=== PATIENT | female | born 1985 | race Caucasian/White ===

== ENCOUNTER 2021-05-20 18:25 | Emergency (ER) | payer OTHER, MEDICAID, SELFPAY ==
[2021-05-20 18:34] VITALS: BMI 27.4
[2021-05-20 18:38] VITALS: BP 178/93; PULSE 111; TEMP 36.5; O2SAT 100
--- NOTE | 2021-05-20 19:03 | ED_ITS ---
HPI - General Adult <Guilherme Vail DO - Last Filed: 05/21/21 20:44> General Chief complaint: Toxicology Problem Stated complaint: crystal meth OD Time Seen by Provider: 05/20/21 18:35 Source: patient and EMS Mode of arrival: EMS History of Present Illness HPI narrative: Patient is a 35-year-old female who is brought in by EMS for evaluation of a meth overdose. It was reported that just prior to arrival the patient ingested 1.5 g of methamphetamine by mouth. Patient states that she knew exactly what the dose was because she had a scale there. She states that she has problems with a relationship with her mother. She states that her mother continuously talks down to her and tells her ?you need to go meet Diogo? because of her methamphetamine abuse. She states that she took the meth because her mother was talking down to her like this this evening. She states that it was in an effort to hurt herself because of her mother. Her mother was the one who contacted EMS. Patient states that she is feeling very anxious otherwise has no other complaints. She denies any other toxic ingestions. Denies any alcohol use. Related Data Allergies Allergy/AdvReac Type Severity Reaction Status Date / Time macadamia nut oil Allergy Verified 05/20/21 18:34 meloxicam Allergy Verified 05/20/21 18:34 Review of Systems <Guilherme Vail DO - Last Filed: 05/21/21 20:44> Constitutional Constitutional: Reports as per HPI and Reports system reviewed and no additional complaints, except as documented Cardiovascular Cardiovascular: Reports as per HPI and Reports system reviewed and no additional complaints, except as documented Respiratory Respiratory: Reports as per HPI and Reports system reviewed and no additional complaints, except as documented Gastrointestinal Gastrointestinal: Reports as per HPI and Reports system reviewed and no additional complaints, except as documented Musculoskeletal Musculoskeletal: Reports system reviewed and no additional complaints, except as documented and Reports as per HPI Neurologic Neurologic: Reports system reviewed and no additional complaints, except as documented and Reports as per HPI Psychiatric Psychiatric: Reports as per HPI Hematologic/Lymphatic On Anticoagulants: No Patient History <Guilherme Vail DO - Last Filed: 05/21/21 20:44> Medical History Methamphetamine abuse Social History Smoking Status: Current every day smoker Smoking Status: Current every day smoker Substance Use Type: methamphetamine Exam <Guilherme Vail DO - Last Filed: 05/21/21 20:44> Initial Vital Signs Initial Vital Signs: Vital Signs Temperature 97.7 F 05/20/21 18:38 Pulse Rate 111 H 05/20/21 18:38 Blood Pressure 178/93 H 05/20/21 18:38 Pulse Oximetry 100 05/20/21 18:38 Const General: cooperative, well groomed and anxious HENMT Head: normal to inspection and normocephalic Resp Effort & Inspection: normal respiratory effort Auscultation: clear to auscultation bilaterally Cardio Rate: tachycardic Rhythm: regular rhythm Skin General: no rashes or lesions noted Neuro General: patient alert, patient awake and moves all extremities Extrem General: normal to inspection and capillary refill normal Psych Appearance: disheveled Speech and Movement: speech and movement normal and not agitated Affect: anxious affect Attitude: cooperative Thought Content: suicidality Judgment: poor <Rita Patricio DO - Last Filed: 05/21/21 16:38> Initial Vital Signs Initial Vital Signs: Vital Signs Temperature 97.7 F 05/20/21 18:38 Pulse Rate 111 H 05/20/21 18:38 Blood Pressure 178/93 H 05/20/21 18:38 Pulse Oximetry 100 05/20/21 18:38 Course <Guilherme Vail DO - Last Filed: 05/21/21 20:44> Orders Ordered: ED Orders 05/21/21 09:00 Urinalysis and Microscopic Stat Urine Drug Screen, Rapid Stat 05/21/21 09:56 Test Urine Stat 05/21/21 09:57 COVID19 -Nasal swab/Pre-Proc Stat Vital Signs Vital signs: Vital Signs - 8 hr 05/21/21 12:53 Temperature 97.8 F Pulse Rate 95 H Respiratory Rate 18 Blood Pressure 155/97 H Pulse Oximetry 99 <Rita Patricio DO - Last Filed: 05/21/21 16:38> Orders Ordered: ED Orders 05/21/21 09:00 Urinalysis and Microscopic Stat Urine Drug Screen, Rapid Stat 05/21/21 09:56 Test Urine Stat 05/21/21 09:57 COVID19 -Nasal swab/Pre-Proc Stat Vital Signs Vital signs: Vital Signs - 8 hr 10/02/21 12:53 Temperature 97.8 F Pulse Rate 95 H Respiratory Rate 18 Blood Pressure 155/97 H Pulse Oximetry 99 Medical Decision Making <Guilherme Vail DO - Last Filed: 05/21/21 20:44> Lab Data Lab results reviewed: Yes I reviewed the patient's lab results. Result diagrams: 05/20/21 19:20 05/20/21 19:20 Labs: Lab Results 05/20/21 05/20/21 05/20/21 Range/Units 19:20 19:20 19:20 WBC 6.2 (4.5-11.0) X10^3/uL RBC 4.34 (4.0-5.2) X10^6/uL Hgb 12.3 (12.0-16.0) g/dL Hct 36.9 (36-46) % MCV 84.9 (80-100) fL MCH 28.3 (26-34) PG MCHC 33.3 (30-36) % RDW 14.4 (11.6-14.8) % Plt Count 279 (150-400) X10^3/uL Neut % (Auto) 51.3 (50-75) % Lymph % (Auto) 39.7 (25-40) % [place] % (Auto) 7.0 (3-14) % Eos % (Auto) 1.0 L (2-4) % Baso % (Auto) 1.0 (0-2) % Neut # (Auto) 3200 (5532-2276) /uL Lymph # (Auto) 2500 (6255-7259) /uL [place] # (Auto) 400 (0-900) /uL Eos # (Auto) 100 (0-450) /uL Baso # (Auto) 100 (0-100) /uL Sodium 140 (137-145) mmol/L Potassium 4.0 (3.4-5.1) mmol/L Chloride 105 (98-107) mmol/L Carbon Dioxide 26 (22-32) mmol/L BUN 13 (7-17) mg/dL Creatinine 0.59 (0.52-1.04) mg/dL Estimated GFR > 60.0 (>60) mL/min BUN/Creatinine Ratio 22.0 (6-22) Glucose 97 (70-100) mg/dL Calcium 9.5 (8.4-10.2) mg/dL Total Bilirubin 0.4 (0.2-1.3) mg/dL AST 22 (14-36) IU/L ALT 15 (<35) IU/L Alkaline Phosphatase 59 (38-126) U/L Total Protein 7.9 (6.3-8.2) g/dL Albumin 4.8 (3.5-5.0) g/dL Globulin 3.1 (1.7-4.1) g/dL Albumin/Globulin Ratio 1.5 (1.0-2.8) Lipase 90 (23-300) U/L TSH 1.87 (0.47-4.68) uIU/mL Serum , Qual (Negative) Urine Color Urine Appearance Urine pH (4.5-8.0) Ur Specific [place] (1.000-1.035) Urine Protein (Negative) Urine Glucose (UA) (Negative) g/dL Urine Ketones (NEGATIVE) Urine Occult Blood (Negative) Urine Nitrate (Negative) Urine Bilirubin (NEGATIVE) Urine Urobilinogen (0.2) E.U./dL Ur Leukocyte Esterase (NEGATIVE) Urine RBC (0-5/HPF) Urine WBC (0-5/HPF) Ur Squamous Epith Cells (0-5/HPF) Urine Bacteria (None) Ur Culture Indicated? Urine Test (Negative) Salicylates (<20) mg/dL U Opiates 300ng/mL cut (Negative) Ur Oxycodone Screen (Negative) Urine Methadone Screen (Negative) Acetaminophen < 10 L (10-30) ug/mL Ur Barbiturates Screen (Negative) U Tricyclic Antidepress (Negative) Ur Phencyclidine Scrn (Negative) Ur Amphetamines Screen (Negative) U Methamphetamines Scrn (Negative) Ur MDMA Scrn (Ecstasy) (Negative) U Benzodiazepines Scrn (Negative) Urine Cocaine Screen (Negative) U Marijuana (THC) Screen (Negative) Ethyl Alcohol < 10 ( - 10) mg/dL SARS-CoV-2 (PCR) (Negative) 05/20/21 05/20/21 05/21/21 Range/Units 19:20 19:20 09:00 WBC (4.5-11.0) X10^3/uL RBC (4.0-5.2) X10^6/uL Hgb (12.0-16.0) g/dL Hct (36-46) % MCV (80-100) fL MCH (26-34) PG MCHC (30-36) % RDW (11.6-14.8) % Plt Count (150-400) X10^3/uL Neut % (Auto) (50-75) % Lymph % (Auto) (25-40) % [place] % (Auto) (3-14) % Eos % (Auto) (2-4) % Baso % (Auto) (0-2) % Neut # (Auto) (0918-9382) /uL Lymph # (Auto) (8486-7534) /uL [place] # (Auto) (0-900) /uL Eos # (Auto) (0-450) /uL Baso # (Auto) (0-100) /uL Sodium (137-145) mmol/L Potassium (3.4-5.1) mmol/L Chloride (98-107) mmol/L Carbon Dioxide (22-32) mmol/L BUN (7-17) mg/dL Creatinine (0.52-1.04) mg/dL Estimated GFR (>60) mL/min BUN/Creatinine Ratio (6-22) Glucose (70-100) mg/dL Calcium (8.4-10.2) mg/dL Total Bilirubin (0.2-1.3) mg/dL AST (14-36) IU/L ALT (<35) IU/L Alkaline Phosphatase (38-126) U/L Total Protein (6.3-8.2) g/dL Albumin (3.5-5.0) g/dL Globulin (1.7-4.1) g/dL Albumin/Globulin Ratio (1.0-2.8) Lipase (23-300) U/L TSH (0.47-4.68) uIU/mL Serum , Qual Negative (Negative) Urine Color Yellow Urine Appearance Clear Urine pH 5.0 (4.5-8.0) Ur Specific [place] >=1.030 H (1.000-1.035) Urine Protein Trace H (Negative) Urine Glucose (UA) Negative (Negative) g/dL Urine Ketones 1+ H (NEGATIVE) Urine Occult Blood 3+ H (Negative) Urine Nitrate Negative (Negative) Urine Bilirubin Negative (NEGATIVE) Urine Urobilinogen 0.2 (0.2) E.U./dL Ur Leukocyte Esterase Negative (NEGATIVE) Urine RBC 1-5/hpf (0-5/HPF) Urine WBC 0-1/hpf (0-5/HPF) Ur Squamous Epith Cells 5-10 /hpf H (0-5/HPF) Urine Bacteria None seen (None) Ur Culture Indicated? Cult not indicated Urine Test (Negative) Salicylates < 1.0 (<20) mg/dL U Opiates 300ng/mL cut (Negative) Ur Oxycodone Screen (Negative) Urine Methadone Screen (Negative) Acetaminophen (10-30) ug/mL Ur Barbiturates Screen (Negative) U Tricyclic Antidepress (Negative) Ur Phencyclidine Scrn (Negative) Ur Amphetamines Screen (Negative) U Methamphetamines Scrn (Negative) Ur MDMA Scrn (Ecstasy) (Negative) U Benzodiazepines Scrn (Negative) Urine Cocaine Screen (Negative) U Marijuana (THC) Screen (Negative) Ethyl Alcohol ( - 10) mg/dL SARS-CoV-2 (PCR) (Negative) 05/21/21 05/21/21 05/21/21 Range/Units 09:00 09:56 09:57 WBC (4.5-11.0) X10^3/uL RBC (4.0-5.2) X10^6/uL Hgb (12.0-16.0) g/dL Hct (36-46) % MCV (80-100) fL MCH (26-34) PG MCHC (30-36) % RDW (11.6-14.8) % Plt Count (150-400) X10^3/uL Neut % (Auto) (50-75) % Lymph % (Auto) (25-40) % [place] % (Auto) (3-14) % Eos % (Auto) (2-4) % Baso % (Auto) (0-2) % Neut # (Auto) (8636-5292) /uL Lymph # (Auto) (2930-8767) /uL [place] # (Auto) (0-900) /uL Eos # (Auto) (0-450) /uL Baso # (Auto) (0-100) /uL Sodium (137-145) mmol/L Potassium (3.4-5.1) mmol/L Chloride (98-107) mmol/L Carbon Dioxide (22-32) mmol/L BUN (7-17) mg/dL Creatinine (0.52-1.04) mg/dL Estimated GFR (>60) mL/min BUN/Creatinine Ratio (6-22) Glucose (70-100) mg/dL Calcium (8.4-10.2) mg/dL Total Bilirubin (0.2-1.3) mg/dL AST (14-36) IU/L ALT (<35) IU/L Alkaline Phosphatase (38-126) U/L Total Protein (6.3-8.2) g/dL Albumin (3.5-5.0) g/dL Globulin (1.7-4.1) g/dL Albumin/Globulin Ratio (1.0-2.8) Lipase (23-300) U/L TSH (0.47-4.68) uIU/mL Serum , Qual (Negative) Urine Color Urine Appearance Urine pH (4.5-8.0) Ur Specific [place] (1.000-1.035) Urine Protein (Negative) Urine Glucose (UA) (Negative) g/dL Urine Ketones (NEGATIVE) Urine Occult Blood (Negative) Urine Nitrate (Negative) Urine Bilirubin (NEGATIVE) Urine Urobilinogen (0.2) E.U./dL Ur Leukocyte Esterase (NEGATIVE) Urine RBC (0-5/HPF) Urine WBC (0-5/HPF) Ur Squamous Epith Cells (0-5/HPF) Urine Bacteria (None) Ur Culture Indicated? Urine Test Negative (Negative) Salicylates (<20) mg/dL U Opiates 300ng/mL cut Negative (Negative) Ur Oxycodone Screen Negative (Negative) Urine Methadone Screen Negative (Negative) Acetaminophen (10-30) ug/mL Ur Barbiturates Screen Negative (Negative) U Tricyclic Antidepress Negative (Negative) Ur Phencyclidine Scrn Negative (Negative) Ur Amphetamines Screen Positive H (Negative) U Methamphetamines Scrn Positive H (Negative) Ur MDMA Scrn (Ecstasy) Positive H (Negative) U Benzodiazepines Scrn Negative (Negative) Urine Cocaine Screen Negative (Negative) U Marijuana (THC) Screen Negative (Negative) Ethyl Alcohol ( - 10) mg/dL SARS-CoV-2 (PCR) Negative (Negative) MDM Narrative Medical decision making narrative: Arrival the patient was cooperative but did appear to be very anxious. She was shaking her legs. She was cooperative in the fact that she allowed us to place an IV and draw blood. She denied the offer for some Ativan to try to help her calm her down. Nursing did discuss the case with poison control who recommended observing for agitation and hyperthermia another sympathomimetic symptoms. Patient was observed for several hours. She was calm and cooperative during this time. She declined another offer for Ativan. She then was found by nursing to be smoking in the bathroom. She was confronted for this. She then became very agitated and aggressive. She threw a shoe at nursing staff. I went in to evaluate the patient. Informed her that this behavior would not be tolerated. Informed her that because of the situation of why she was here that we now need to take her belongings. She became much more agitated. Was thrashing around in bed. Was kicking her legs. I did have concern about her safety and the safety of the nurses and other staff in the emergency department. We were able to get her belongings from her. She took her own clothes off. She was offered paper scrubs but denied clothing. She was offered blankets and sheets. She was also offered a pad because she was on her menstrual cycle. She was also offered underwear but she declined. She states that it was a ?texture ?issue. At the time the even since patient miles vieyra did not have the capacity to make decisions. Police were called secondary to the agitation however other than trying to calm the patient down had no other interaction with her. Patient was sitting in the hallway of the emergency department naked. We offered her a blanket and some sheets however she declined. She stated that she would go in to her exam room if she had her phone. I felt that letting her have her phone in order to calm the situation was the most appropriate action. She asked for the dental appliance fixer however I declined giving her this. I did consider giving her Ativan and other sedatives as I feel that most likely her increase in agitation is related to the methamphetamine. A t 1 point she also stated that she was very paranoid because of the methamphetamine. She stated that she did not want any medication. Consider giving her an IM dose of medication however we were able to deescalate the situation by given her her phone and she did go into the room on her own. We wi ll continue to monitor her. Patient was placed in a locked room for her safety and also the safety of staff in the emergency department. She is on her menstrual cycle and she began to smear blood on the inside window of the locked door. 0320: Patient did get dressed into the paper scrubs on her own. She is lying calmly on the mattress on the floor of the room. Between 5 and 0530 hours the patient did become much more calm. She stated that she needed to use the restroom. We helped her go to the bathroom. The door that had her in seclusion was opened. She did leave the room. She is asked to return to the room. She eventually did return to the room on her own. She is currently resting comfortably. She is no longer in seclusion. Dr vail: Patient currently sleeping and has been calm. Care turned over to Dr. Patricio to follow up and disposition. <Rita Patricio, - Last Filed: 05/21/21 16:38> Lab Data Labs: Lab Results 05/20/21 05/20/21 05/20/21 Range/Units 19:20 19:20 19:20 WBC 6.2 (4.5-11.0) X10^3/uL RBC 4.34 (4.0-5.2) X10^6/uL Hgb 12.3 (12.0-16.0) g/dL Hct 36.9 (36-46) % MCV 84.9 (80-100) fL MCH 28.3 (26-34) PG MCHC 33.3 (30-36) % RDW 14.4 (11.6-14.8) % Plt Count 279 (150-400) X10^3/uL Neut % (Auto) 51.3 (50-75) % Lymph % (Auto) 39.7 (25-40) % [place] % (Auto) 7.0 (3-14) % Eos % (Auto) 1.0 L (2-4) % Baso % (Auto) 1.0 (0-2) % Neut # (Auto) 3200 (9688-0294) /uL Lymph # (Auto) 2500 (5851-8617) /uL [place] # (Auto) 400 (0-900) /uL Eos # (Auto) 100 (0-450) /uL Baso # (Auto) 100 (0-100) /uL Sodium 140 (137-145) mmol/L Potassium 4.0 (3.4-5.1) mmol/L Chloride 105 (98-107) mmol/L Carbon Dioxide 26 (22-32) mmol/L BUN 13 (7-17) mg/dL Creatinine 0.59 (0.52-1.04) mg/dL Estimated GFR > 60.0 (>60) mL/min BUN/Creatinine Ratio 22.0 (6-22) Glucose 97 (70-100) mg/dL Calcium 9.5 (8.4-10.2) mg/dL Total Bilirubin 0.4 (0.2-1.3) mg/dL AST 22 (14-36) IU/L ALT 15 (<35) IU/L Alkaline Phosphatase 59 (38-126) U/L Total Protein 7.9 (6.3-8.2) g/dL Albumin 4.8 (3.5-5.0) g/dL Globulin 3.1 (1.7-4.1) g/dL Albumin/Globulin Ratio 1.5 (1.0-2.8) Lipase 90 (23-300) U/L TSH 1.87 (0.47-4.68) uIU/mL Serum , Qual (Negative) Urine Color Urine Appearance Urine pH (4.5-8.0) Ur Specific [place] (1.000-1.035) Urine Protein (Negative) Urine Glucose (UA) (Negative) g/dL Urine Ketones (NEGATIVE) Urine Occult Blood (Negative) Urine Nitrate (Negative) Urine Bilirubin (NEGATIVE) Urine Urobilinogen (0.2) E.U./dL Ur Leukocyte Esterase (NEGATIVE) Urine RBC (0-5/HPF) Urine WBC (0-5/HPF) Ur Squamous Epith Cells (0-5/HPF) Urine Bacteria (None) Ur Culture Indicated? Urine Test (Negative) Salicylates (<20) mg/dL U Opiates 300ng/mL cut (Negative) Ur Oxycodone Screen (Negative) Urine Methadone Screen (Negative) Acetaminophen < 10 L (10-30) ug/mL Ur Barbiturates Screen (Negative) U Tricyclic Antidepress (Negative) Ur Phencyclidine Scrn (Negative) Ur Amphetamines Screen (Negative) U Methamphetamines Scrn (Negative) Ur MDMA Scrn (Ecstasy) (Negative) U Benzodiazepines Scrn (Negative) Urine Cocaine Screen (Negative) U Marijuana (THC) Screen (Negative) Ethyl Alcohol < 10 ( - 10) mg/dL SARS-CoV-2 (PCR) (Negative) 05/20/21 05/20/21 05/21/21 Range/Units 19:20 19:20 09:00 WBC (4.5-11.0) X10^3/uL RBC (4.0-5.2) X10^6/uL Hgb (12.0-16.0) g/dL Hct (36-46) % MCV (80-100) fL MCH (26-34) PG MCHC (30-36) % RDW (11.6-14.8) % Plt Count (150-400) X10^3/uL Neut % (Auto) (50-75) % Lymph % (Auto) (25-40) % [place] % (Auto) (3-14) % Eos % (Auto) (2-4) % Baso % (Auto) (0-2) % Neut # (Auto) (2417-9594) /uL Lymph # (Auto) (7605-3568) /uL [place] # (Auto) (0-900) /uL Eos # (Auto) (0-450) /uL Baso # (Auto) (0-100) /uL Sodium (137-145) mmol/L Potassium (3.4-5.1) mmol/L Chloride (98-107) mmol/L Carbon Dioxide (22-32) mmol/L BUN (7-17) mg/dL Creatinine (0.52-1.04) mg/dL Estimated GFR (>60) mL/min BUN/Creatinine Ratio (6-22) Glucose (70-100) mg/dL Calcium (8.4-10.2) mg/dL Total Bilirubin (0.2-1.3) mg/dL AST (14-36) IU/L ALT (<35) IU/L Alkaline Phosphatase (38-126) U/L Total Protein (6.3-8.2) g/dL Albumin (3.5-5.0) g/dL Globulin (1.7-4.1) g/dL Albumin/Globulin Ratio (1.0-2.8) Lipase (23-300) U/L TSH (0.47-4.68) uIU/mL Serum , Qual Negative (Negative) Urine Color Yellow Urine Appearance Clear Urine pH 5.0 (4.5-8.0) Ur Specific [place] >=1.030 H (1.000-1.035) Urine Protein Trace H (Negative) Urine Glucose (UA) Negative (Negative) g/dL Urine Ketones 1+ H (NEGATIVE) Urine Occult Blood 3+ H (Negative) Urine Nitrate Negative (Negative) Urine Bilirubin Negative (NEGATIVE) Urine Urobilinogen 0.2 (0.2) E.U./dL Ur Leukocyte Esterase Negative (NEGATIVE) Urine RBC 1-5/hpf (0-5/HPF) Urine WBC 0-1/hpf (0-5/HPF) Ur Squamous Epith Cells 5-10 /hpf H (0-5/HPF) Urine Bacteria None seen (None) Ur Culture Indicated? Cult not indicated Urine Test (Negative) Salicylates < 1.0 (<20) mg/dL U Opiates 300ng/mL cut (Negative) Ur Oxycodone Screen (Negative) Urine Methadone Screen (Negative) Acetaminophen (10-30) ug/mL Ur Barbiturates Screen (Negative) U Tricyclic Antidepress (Negative) Ur Phencyclidine Scrn (Negative) Ur Amphetamines Screen (Negative) U Methamphetamines Scrn (Negative) Ur MDMA Scrn (Ecstasy) (Negative) U Benzodiazepines Scrn (Negative) Urine Cocaine Screen (Negative) U Marijuana (THC) Screen (Negative) Ethyl Alcohol ( - 10) mg/dL SARS-CoV-2 (PCR) (Negative) 05/21/21 05/21/21 05/21/21 Range/Units 09:00 09:56 09:57 WBC (4.5-11.0) X10^3/uL RBC (4.0-5.2) X10^6/uL Hgb (12.0-16.0) g/dL Hct (36-46) % MCV (80-100) fL MCH (26-34) PG MCHC (30-36) % RDW (11.6-14.8) % Plt Count (150-400) X10^3/uL Neut % (Auto) (50-75) % Lymph % (Auto) (25-40) % [place] % (Auto) (3-14) % Eos % (Auto) (2-4) % Baso % (Auto) (0-2) % Neut # (Auto) (8183-9786) /uL Lymph # (Auto) (3451-5628) /uL [place] # (Auto) (0-900) /uL Eos # (Auto) (0-450) /uL Baso # (Auto) (0-100) /uL Sodium (137-145) mmol/L Potassium (3.4-5.1) mmol/L Chloride (98-107) mmol/L Carbon Dioxide (22-32) mmol/L BUN (7-17) mg/dL Creatinine (0.52-1.04) mg/dL Estimated GFR (>60) mL/min BUN/Creatinine Ratio (6-22) Glucose (70-100) mg/dL Calcium (8.4-10.2) mg/dL Total Bilirubin (0.2-1.3) mg/dL AST (14-36) IU/L ALT (<35) IU/L Alkaline Phosphatase (38-126) U/L Total Protein (6.3-8.2) g/dL Albumin (3.5-5.0) g/dL Globulin (1.7-4.1) g/dL Albumin/Globulin Ratio (1.0-2.8) Lipase (23-300) U/L TSH (0.47-4.68) uIU/mL Serum , Qual (Negative) Urine Color Urine Appearance Urine pH (4.5-8.0) Ur Specific [place] (1.000-1.035) Urine Protein (Negative) Urine Glucose (UA) (Negative) g/dL Urine Ketones (NEGATIVE) Urine Occult Blood (Negative) Urine Nitrate (Negative) Urine Bilirubin (NEGATIVE) Urine Urobilinogen (0.2) E.U./dL Ur Leukocyte Esterase (NEGATIVE) Urine RBC (0-5/HPF) Urine WBC (0-5/HPF) Ur Squamous Epith Cells (0-5/HPF) Urine Bacteria (None) Ur Culture Indicated? Urine Test Negative (Negative) Salicylates (<20) mg/dL U Opiates 300ng/mL cut Negative (Negative) Ur Oxycodone Screen Negative (Negative) Urine Methadone Screen Negative (Negative) Acetaminophen (10-30) ug/mL Ur Barbiturates Screen Negative (Negative) U Tricyclic Antidepress Negative (Negative) Ur Phencyclidine Scrn Negative (Negative) Ur Amphetamines Screen Positive H (Negative) U Methamphetamines Scrn Positive H (Negative) Ur MDMA Scrn (Ecstasy) Positive H (Negative) U Benzodiazepines Scrn Negative (Negative) Urine Cocaine Screen Negative (Negative) U Marijuana (THC) Screen Negative (Negative) Ethyl Alcohol ( - 10) mg/dL SARS-CoV-2 (PCR) Negative (Negative) MDM Narrative Medical decision making narrative: Arrival the patient was cooperative but did appear to be very anxious. She was shaking her legs. She was cooperative in the fact that she allowed us to place an IV and draw blood. She denied the offer for some Ativan to try to help her calm her down. Nursing did discuss the case with poison control who recommended observing for agitation and hyp erthermia another sympathomimetic symptoms. Patient was observed for several hours. She was calm and cooperative during this time. She declined another offer for Ativan. She then was found by nursing to be smoking in the bathroom. She was confronted for this. She then became very agitated and aggressive. She threw a shoe at nursing staff. I went in to evaluate the patient. Informed her that this behavior would not be tolerated. Informed her that because of the situation of why she was here that we now need to take her belongings. She became much more agitated. Was thrashing around in bed. Was kicking her legs. I did have concern about her safety and the safety of the nurses and other staff in the emergency department. We were able to get her belongings from her. She took her own clothes off. She was offered paper scrubs but denied clothing. She was offered blankets and sheets. She was also offered a pad because she was on her menstrual cycle. She was also offered underwear but she declined. She states that it was a ?texture ?issue. At the time the even since patient clearly did not have the capacity to make decisions. Police were called secondary to the agitation however other than trying to calm the patient down had no other interaction with her. Patient was sitting in the hallway of the emergency department naked. We offered her a blanket and some sheets however she declined. She stated that she would go in to her exam room if she had her phone. I felt that letting her have her phone in order to calm the situation was the most appropriate action. She asked for the dental appliance fixer however I declined giving her this. I did consider giving her Ativan and other sedatives as I feel that most likely her increase in agitation is related to the methamphetamine. At 1 point she also stated that she was very paranoid because of the methamphetamine. She stated that she did not want any medication. Consider giving her an IM dose of medication however we were able to deescalate the situation by given her her phone and she did go into the room on her own. We will continue to monitor her. Patient was placed in a locked room for her safety and also the safety of staff in the emergency department. She is on her menstrual cycle and she began to smear blood on the inside window of the locked door. 0320: Patient did get dressed into the paper scrubs on her own. She is lying calmly on the mattress on the floor of the room. Between 5 and 0530 hours the patient did become much more calm. She stated that she needed to use the restroom. We helped her go to the bathroom. The door that had her in seclusion was opened. She did leave the room. She is asked to return to the room. She eventually did return to the room on her own. She is currently resting comfortably. She is no longer in seclusion. Dr vail: Patient currently sleeping and has been calm. Care turned over to Dr. Patricio to follow up and disposition. RADHA Every CV sign-out to from Dr. Vail and seen evaluated patient myself. She is currently sleeping underneath the fitted she. When I have spoken to her she states that she is in a cocoon. When directly asked if she is suicidal she states yes. It sounds as though she has a history of schizophrenia as well. She is asking for methamphetamine or Xanax she is offered Ativan. She also states that she half a pop AC to help with her diabetes. She has had different names this morning depending on who goes in there and talks to her. 1 personality will say that she agrees to the COVID test the next personality does not agree to the COVID test. She states that she has no previous mental health hospitalizations a. It seems as though she is willing to go. I have requested that we get a urine get a hold from her she states that she will blood it in her hand. Fortunately we got in a urine cup. Patient was evaluated by social Work and then eventually evaluated by DCR. She became alert oriented and responsive. No longer suicidal felt ready able to go home. She not meet involuntary criteria she admitted she was no longer suicidal. Cough patient was discharged Discharge Plan Departure Patient Disposition: Home Clinical Impression: Methamphetamine abuse, Suicidal ideation Instructions: DI for Substance Use Disorder, Suicidal Ideation-Adult Activity Restrictions/Additional Instructions: *You have been diagnosed with suicidal ideation and methamphetamine abuse *What to do: At this time I recommend stop taking methamphetamine. If you are feeling suicidal or having suicidal thoughts: Call: Suicide Hotline: Visit: www.[employer] Text: 141961 *Continue to take medications as directed *Follow up with your primary care provider in 2-3 days *Return to ER if you should have any new, worsening or concerning symptoms Restraint Lovq-os-Amew <Guilherme Vail, - Last Filed: 05/21/21 20:44> Restraint Mows-tt-Hgrz Evaluation Aqeq-bv-Pyvs #1: Date: 05/21/21 Time: 01:58 Patient Appearance: Disheveled and Inappropriate Level of Consciousness: Alert, Combative, Inappropriate and Restless Speech Pattern: Excited and Includes Profanity Mood Description: Angry, Anxious, Elated, Hostile and Nervous Ability to Follow Directions: Poor Thought Process: Illogical Respirations: Normal respiratory rate Circulation: Moves all extremities and Skin warm and dry Behavior necessitating restraint: Agitated, Escalating verbal abuse, ETOH/Substance Abuse, Attempt to self harm and Violent Other risks: self harm in room Restraint risks explained to patient: No Restraint risks explained to family: No Restraint Needs: Continue Restraints
[2021-05-20 19:29] LABS: Add Manual Diff / Slide Review NO; Basophils Absolute Auto 100 /uL (0-100); Eosinophils Absolute Auto 100 /uL (0-450); Hematocrit 36.9 % (36-46); Hemoglobin 12.3 g/dL (12.0-16.0); Lymphocytes Absolute Auto 2500 /uL (1100-4500); Lymphocytes Percent Auto 39.7 % (25-40); Mean Corpuscular HGB Conc 33.3 % (30-36); Mean Corpuscular Hemoglobin 28.3 PG (26-34); Mean Corpuscular Volume 84.9 fL (80-100); Monocytes Absolute Auto 400 /uL (0-900); Neutrophils Absolute Auto 3200 /uL (1500-7000); Neutrophils Percent Auto 51.3 % (50-75); Platelet Count 279 X10^3/uL (150-400); Red Blood Cell Count 4.34 X10^6/uL (4.0-5.2); Red Cell Distribution Width 14.4 % (11.6-14.8); White Blood Cell Count 6.2 X10^3/uL (4.5-11.0)
[2021-05-20 19:42] LABS: Acetaminophen < 10 ug/mL (10-30); Alanine Aminotransferase 15 IU/L (<35); Albumin 4.8 g/dL (3.5-5.0); Albumin Globulin Ratio 1.5 (1.0-2.8); Alkaline Phosphatase 59 U/L (38-126); Aspartate Aminotransferase 22 IU/L (14-36); Bilirubin Total 0.4 mg/dL (0.2-1.3); Blood Urea Nitrogen 13 mg/dL (7-17); Calcium 9.5 mg/dL (8.4-10.2); Carbon Dioxide 26 mmol/L (22-32); Chloride 105 mmol/L (98-107); Estimated Glomerular Filt Rate > 60.0 mL/min (>60); Ethanol (ETOH) < 10 mg/dL; Globulin 3.1 g/dL (1.7-4.1); Glucose 97 mg/dL (70-100); HEMOLYSIS < 15 (0-50); Lipase 90 U/L (23-300); Sodium 140 mmol/L (137-145); Total Protein 7.9 g/dL (6.3-8.2)
[2021-05-20 19:57] LABS: Pregnancy Test Serum,Qual Negative (Negative)
[2021-05-20 20:31] LABS: Thyroid Stimulating Hormone 1.87 uIU/mL (0.47-4.68)
--- NOTE | 2021-05-20 22:30 | PC.NURSE ---
Received call from poison control, states pt needs to be monitored for 6 hours from time of ingestion. States to treat with benzo's, pt at risk for tachycardia, hypertension and seizures. Provider aware.
[2021-05-21 00:43] LABS: Salicylate < 1.0 mg/dL (<20)
[2021-05-21 01:00] VITALS: BP 144/74; PULSE 103; RESP 22; TEMP 36.8; O2SAT 98
--- NOTE | 2021-05-21 01:16 | PC.NURSE ---
pt attempted to smoke a cigarette twice. sitter informed nurse and pt then became aggravated and yelled fine I'll just kill myself x4. Began yelling expletives at ED staff and provider. Security brought in/[employer] called.
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
--- NOTE | 2021-05-21 02:22 | PC.NURSE ---
pt on seclusion restraint per provider order. pt sitting with back to door yelling expletives.
--- NOTE | 2021-05-21 02:35 | PC.NURSE ---
Patient was smoking in the bathroom; I told her she needs to put that out JAEL and that we need to take her belongings. Patient immediately became enraged, said she was suicidal; stripped her clothes off and threw them at me including her shoes. Got into bed, lit up another cigarette and extensively cursed me out. At that point we called security, doc at bedside. Pt became more aggressive, screaming, cursing, swinging. Threw herself on the ground and into a cart next to the room. Refused to put any clothes back on. We offered her a gown, blanket, mesh underwear, and our paper scrubs and patient refused all of it and is still currently without any pants/underwear on. [employer] was called. After about 30min, Pt finally started dragging her bottom across the floor into the room, still enraged screaming from the door that she is a minor.
--- NOTE | 2021-05-21 05:07 | PC.NURSE ---
pt has been cooperative and has been allowed to have door open. pt soon after came out of the room to say my father said I could leave so thats what I'm gonna do this sitter informed nurse and MYSQL DATABASE DEVELOPER of situation and tried to convince pt to return to room. pt now sitting on the floor in front of door.
--- NOTE | 2021-05-21 05:33 | PC.NURSE ---
Patient asked to use restroom. Allowed into bathroom, I asked patient for urine sample and she adamantly refused saying her father told her to never give anyone a urine sample.
[2021-05-21 05:44] VITALS: BP 137/82; PULSE 90; RESP 18; O2SAT 100
--- NOTE | 2021-05-21 07:41 | PC.NURSE ---
approached patient to introduce myself and the patient stated that her name was not Brittany, her name was Bernice and Bernice has covid-19 so she couldn't take off the shirt that was laying over her face. She stated that she desperately needed to be checked for covid-19. Went I returned to the room with a swab she stated that her name was no longer Bernice it was now Robby and Robby doesn't need a covid swab. She declined the covid swab
[2021-05-21 09:13] LABS: Appearance Urine UA CLEAR; Bilirubin Urine UA NEGATIVE (NEGATIVE); Color Urine UA YELLOW; Glucose Urine UA NEGATIVE (Negative); Ketones Urine UA 1+ (NEGATIVE); Leukocyte Esterase Urine UA NEGATIVE (NEGATIVE); Nitrite Urine UA NEGATIVE (Negative); Occult Blood Urine UA 3+ (Negative); Protein Urine UA TRACE (Negative); Specific Gravity Urine UA >=1.030 (1.000-1.035); Urobilinogen Urine UA 0.2 E.U./dL (0.2)
[2021-05-21 09:16] LABS: UR Morphine/Opiate cutoff 300 Negative (Negative); Ur Creatinine Normal (Normal); Ur Specific Gravity Normal (Normal); Urine Amphetamines Positive (Negative); Urine Barbiturates Negative (Negative); Urine Benzodiazepines Negative (Negative); Urine Cocaine Negative (Negative); Urine MDMA Positive (Negative); Urine Methadone Negative (Negative); Urine Methamphetamines Positive (Negative); Urine Oxycodone Negative (Negative); Urine Phencyclidine Negative (Negative); Urine Tetrahydrocannabinol Negative (Negative); Urine Tricyclic Antidepressant Negative (Negative); Urine pH Normal (Normal)
[2021-05-21 09:18] LABS: Culture Indicated Urine Cult Not Indicated; RBC Urine 1-5/HPF (0-5/HPF); Squamous Epithelial Cell Urine 5-10 /HPF (0-5/HPF); WBC Urine 0-1/HPF (0-5/HPF)
[2021-05-21 09:19] LABS: Bacteria Urine None Seen
[2021-05-21 10:00] LABS: Pregnancy Test Urine Negative (Negative)
[2021-05-21 10:20] LABS: COVID19 -Nasal RAPID Negative (Negative)
--- NOTE | 2021-05-21 12:32 | CM.SWNOTE ---
Addendum entered by PROMISE Quintana 05/21/21 13:04: ADD: Patient tells Dr Patricio and this PERSONALIZED LIVING MANAGER NURSE she will give urine sample from her hands. Changes answers and changes her name as different people enter the room. INÉS Original Note: PERSONALIZED LIVING MANAGER NURSE Note This PERSONALIZED LIVING MANAGER NURSE requested for consult to assess needs of this 35 yo female, presented to the ED via EMS last night for evaluation of a meth overdose. Patient tox+ for Ecstasy, meth and amphetamine. Patient had reported to ED staff upon arrival that she had ingested 1.5g of meth w/intention of killing herself d/t conflict w/her mother. Reviewed chart which outlined patient's agitation and belligerence overnight. Reviewed case with Dr Patricio. We decided to meet w/patient together this morning. Arrived to ED Rm 13 and patient was lying on the ground, it appeared as though she took a fitted sheet and covered herself entirely, patient was lying face down; When asked why patient states it's my cocoon. You've helped me by providing me my cocoon. Patient admitted to prior and current thoughts of hurting herself. Dr Patricio asks about current mental health providers and h/o hospitalization, patient denies and says a little Schizophrenia. Patient is asked if the ER can help her today and patient says can I get some Meth? Patient calm and pleasant, cooperative w/giving urine sample and w/nasal swab for COVID-19 PCR. Patient asks for a poppy seed for breakfast. Reviewed w/Dr Patricio outside of patient's room and d/t patient's presentation and inability to safety plan this morning, placed call to DCR to discuss dispatch for possible detainment to [facility]. INÉS
[2021-05-21 12:53] VITALS: BP 155/97; PULSE 95; RESP 18; TEMP 36.6; O2SAT 99
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
== END 2021-05-21 13:02 | disposition home or self-care (01) ==
PROVIDERS: Emergency Medicine; Emergency Provider Emergency Medicine
DX: F15.10 Other stimulant abuse, uncomplicated (principal); R45.851 Suicidal ideations; Z20.822 Contact with and (suspected) exposure to COVID-19
CPT/HCPCS: 36415; 80053; 80305; 80320; 80329; 81001; 81025; 83690; 84443; 84703; 85025; 87635; 99285; C9803; G0480

== ENCOUNTER 2021-05-21 15:03 | Emergency (ER) | payer OTHER, MEDICAID, SELFPAY ==
[2021-05-21] MEDS: LORazepam 0.5 MG TABLET 1 MG PO (15:33)
[2021-05-21 15:41] VITALS: TEMP 37.1; BMI 28.3
--- NOTE | 2021-05-21 15:56 | PC.NURSE ---
when patient was interviewed for triage she stated her chief complaint was wanting help to get over her feeling of being high. Then fitch her vitals were taken and she offered the explanation that she was really having suicidal ideations but would not elaborate about plan or specifics.
--- NOTE | 2021-05-21 17:31 | PC.NURSE ---
Pt is resting in bed, lying on left side, respirations even/unlabored
--- NOTE | 2021-05-21 17:44 | ED_ITS ---
HPI - Psych <Rita Patricio DO - Last Filed: 05/22/21 10:20> General Chief Complaint: Psychiatric Symptoms Stated Complaint: Anxiety, SI Time Seen by Provider: 05/21/21 15:09 Source: EMS Mode of arrival: EMS History of Present Illness HPI Narrative: Patient is a 35-year-old female who was discharged from the emergency department an hour and half ago presenting again with suicidal ideation. Yesterday she overdosed on crystal methamphetamines she was monitored in the emergency department all night she was evaluated by DCR and still sore. She was deemed not involuntary at discharge he denies any suicidal ideations. She went to her mom's house who seems to be a trigger for her. She smoked a lot of marijuana and became suicidal. She does not have a specific plan she is extremely anxious. She states that she really just wants her mother to liver her and she does not feel that she is. She is very anxious and requesting something for anxiety. When I asked her if she wants mental health hospitalization she was unable at. Related Data Allergies Allergy/AdvReac Type Severity Reaction Status Date / Time macadamia nut oil Allergy Verified 05/20/21 18:34 meloxicam Allergy Verified 05/20/21 18:34 Review of Systems <Rita Patricio DO - Last Filed: 05/22/21 10:20> Review of Systems Narrative: GENERAL: Denies chills,fever HEENT: Denies throat pain RESPIRATORY: Denies dyspnea, cough, wheezing CARDIOVASCULAR: Denies chest pain, palpitations GASTROINTESTINAL: Denies nausea, vomiting MUSCULOSKELETAL: Denies extremity pain, injury SKIN: No rash, no laceration, no pruritus NEUROLOGIC: Denies weakness, dizziness, headache, numbness 8 point review of systems is negative except for those stated above and HPI Psychiatric Psychiatric: Reports as per HPI, Reports anxiety and Reports mood swings Patient History <Rita Patricio DO - Last Filed: 05/22/21 10:20> Medical History Methamphetamine abuse Social History Smoking Status: Current every day smoker Smoking Status: Current every day smoker Substance Use Type: marijuana and methamphetamine Exam <Rita Patricio DO - Last Filed: 05/22/21 10:20> Initial Vital Signs Initial Vital Signs: Vital Signs Temperature 98.7 F 05/21/21 15:41 GENERAL: Alert anxious female CARDIOVASCULAR: peripheral pulses in tact, cap refill <2 sec RESPIRATORY: No respiratory distress, speaks in full sentences without difficulty EXTREMITIES: Normal range of motion, no clubbing or edema. Neurovascularly intact NEUROLOGICAL: Cranial nerves II through XII grossly intact. Normal gait and speech. SKIN: Warm, dry, no petechiae, no rashes or lesions. <Guilherme Vail, DO - Last Filed: 05/22/21 20:47> Initial Vital Signs Initial Vital Signs: Vital Signs Temperature 98.7 F 05/21/21 15:41 Course <Rita Patricio DO - Last Filed: 05/22/21 10:20> Orders Ordered: Discontinued Medications Lorazepam (Lorazepam 0.5 Mg Tablet) 1 mg PO NOW ONE Stop: 05/21/21 15:10 Last Admin: 05/21/21 15:33 Dose: 1 mg Documented by: LAZARO Vital Signs Vital signs: Vital Signs - 8 hr 05/22/21 05:50 Temperature 98.7 F Pulse Rate 78 Respiratory Rate 14 Blood Pressure 110/60 Pulse Oximetry 99 <Guilherme Vail, DO - Last Filed: 05/22/21 20:47> Orders Ordered: Discontinued Medications Lorazepam (Lorazepam 0.5 Mg Tablet) 1 mg PO NOW ONE Stop: 05/21/21 15:10 Last Admin: 05/21/21 15:33 Dose: 1 mg Documented by: LAZARO Vital Signs Vital signs: Vital Signs - 8 hr 05/22/21 05:50 Temperature 98.7 F Pulse Rate 78 Respiratory Rate 14 Blood Pressure 110/60 Pulse Oximetry 99 MDM - Psych <Rita Patricio, DO - Last Filed: 05/22/21 10:20> [facility] Narrative Medical decision making narrative: Patient is given Ativan. Leading her calm down and then will reassess. Patient has fallen asleep and is cooperative at this time. Patient is signed out to Dr. Vail for further management. Dr vail: Received turned over. Reviewed patient's history and physical. I a.m. aware of the patient. I saw her the night prior to this ED visit. There are no labs pending. Patient has been sleeping the entire shift. She has been calm. She did wake up at approximately 0530 in the morning. She was somewhat confused about what time it was or how long she had been here in the ER. She reported that she was still tired. She did express that she did not have any suicidal ideation. She declined an offer of a sandwich. She was drinking water. She was given warm blankets. I do not feel that the patient is in a current mental status where she could affectively make decisions. Will continue to watch her here in the emergency department. Care turned over to Dr. Patricio to disposition. 05/22/21 RADHA Patient is reassessed by me this morning. She is awake alert oriented. She is appropriate she remembers why she was here she says that she really wanted to adverse her mom and she felt like hurting herself. She no longer feels like hurting herself she does not want any resources. At this time she feels pretty in able to go. The patient is clinically sober, free from distracting injury, appears to have intact insight, judgment and reason. Does not meet criteria for involuntary hospitalization. Patient has the capacity to make decisions. <Guilherme Vail, DO - Last Filed: 05/22/21 20:47> [facility] Narrative Medical decision making narrative: Patient is given Ativan. Leading her calm down and then will reassess. Patient has fallen asleep and is cooperative at this time. Patient is signed out to Dr. Vail for further management. Dr vail: Received turned over. Reviewed patient's history and physical. I a.m. aware of the patient. I saw her the night prior to this ED visit. There are no labs pending. Patient has been sleeping the entire shift. She has been calm. She did wake up at approximately 0530 in the morning. She was somewhat confused about what time it was or how long she had been here in the ER. She reported that she was still tired. She did express that she did not have any suicidal ideation. She declined an offer of a sandwich. She was drinking water. She was given warm blankets. I do not feel that the patient is in a current mental status where she could affectively make decisions. Will continue to watch her here in the emergency department. Care turned over to Dr. Patricio to disposition. Discharge Plan Departure Patient Disposition: Home Clinical Impression: Suicidal ideation Instructions: DI for Suicidal Ideation-Adult Activity Restrictions/Additional Instructions: *You have been diagnosed with suicidal ideation *What to do: If you are feeling suicidal or having suicidal thoughts: Call: Suicide Hotline: Visit: www.[employer].org Text: 243293 *Continue to take medications as directed *Follow up with your primary care provider in 2-3 days *Return to ER if you should have any new, worsening or concerning symptoms
--- NOTE | 2021-05-21 19:09 | PC.NURSE ---
Pt is still sleeping, turned over in bed, back to left side.
[2021-05-22 05:50] VITALS: BP 110/60; PULSE 78; RESP 14; TEMP 37.1; O2SAT 99
--- NOTE | 2021-05-22 07:25 | PC.NURSE ---
Pt continues to rest. Respirations observed. Patient currently laying on back.
--- NOTE | 2021-05-22 08:55 | PC.NURSE ---
Patient offered breakfast sandwich and fruit. Patient asked for coffee, as well. Patient currently sitting in bed having breakfast.
== END 2021-05-22 09:55 | disposition home or self-care (01) ==
PROVIDERS: Emergency Provider Emergency Medicine
DX: R45.851 Suicidal ideations (principal)
CPT/HCPCS: 99284